=== PATIENT | male | born 1945 | race Caucasian/White ===

== ENCOUNTER 2017-09-12 17:33 | Observation (INO) | payer MEDICARE, OTHER, SELFPAY ==
[2017-09-12] VITALS (11 sets, daily range): BP systolic 142–183; BP diastolic 90–114; PULSE 70–85; RESP 16–18; TEMP 36.9–37.1; O2SAT 90–97; BMI 25.2; BMI 25.0; BMI 25.1
--- NOTE | 2017-09-12 17:37 | RAD_ITS ---
STUDY: X-RAY CHEST REASON FOR EXAM: Male, 72 years old. Chest pain TECHNIQUE: PA COMPARISON: None. FINDINGS: There is interstitial thickening seen most pronounced the lower lobes. There is a small nodular density in left upper lobe and a smaller one in the right lower lobe with possible cavitation.. There is no demonstrated pleural abnormality. Normal size heart. Normal mediastinum and ann. Normal visualized pulmonary arteries. Tortuous mild calcified aortic arch and descending thoracic aorta. Dorsal spine demonstrates spondylosis. Normal visualized ribs, clavicles, and shoulders. There is no demonstrated abnormality of the visualized soft tissue structures of the upper abdomen. RAD/Chest 1 View (Portable) IMPRESSION: Interstitial thickening most pronounced the lower lobes. Small nodular opacity in left upper lobe and right lower lobe with possible cavitation. CT recommended for further evaluation Electronically Signed: Leon Kelly MD at 18:39 EDT , Service support ,
--- NOTE | 2017-09-12 17:37 | EKG12_ITS ---
Test Reason : CP Blood Pressure : / mmHG Vent. Rate : 079 BPM Atrial Rate : 079 BPM P-R Int : 142 ms QRS Dur : 086 ms QT Int : 402 ms P-R-T Axes : 073 070 079 degrees QTc Int : 460 ms Normal sinus rhythm Normal ECG Confirmed by PATRICIA GARCIA, EDINSON ([id number]), non linear editor TORRI SALAMANCA ([id number]) on 09/15/2017 2:03:00 PM Referred By: LEAH Confirmed By:EDINSON GOMEZ MD
--- NOTE | 2017-09-12 18:25 | ED.VISSUMM ---
- ER Visit Summary Date of Service: 09/12/17 Chief Complaint: Pain History of Present Illness: The patient is a 72 M with chest pain. Retrosternal and radiates to his ears. Started yesterday. The last time he had this he ended up getting a stent around the year 1999. He has a history of coronary disease, hypertension, hyperlipidemia. He does smoke. He takes aspirin daily. He is also reporting some shortness of breath, nausea, and lower extremity swelling with this. No history of PE or aortic disease. Physical Examination: Afebrile and vital signs unremarkable except for a blood pressure of 183/114. He is sitting comfortably and appears in no acute distress. Skin normal in color without diaphoresis or pallor. Heart regular. Lungs clear. Abdomen soft. Patient has symmetric lower extremity edema. Neurovascular intact distally. Calf soft. Test Results: EKG shows sinus rhythm at a rate of 79. No acute ischemia or infarction pattern. Blood work and x-ray pending. Emergency Department Course and Treatment: Patient was placed on a monitor. He was treated with aspirin and nitroglycerin while awaiting results. Workup was all fairly unremarkable. X-ray showed a nodule and CT was advised. CTA was subsequently performed and showed bilateral extensive PEs. The patient did require oxygen as his pulse ox dropped to 89 on room air. He responded to nasal cannula. I notified the patient. He has no significant bleeding risks. Coags are pending. I spoke with the hospitalist. Patient will be admitted. We will start Eliquis. Treatment Plan: As above Disposition: Admission Impression: 1. Bilateral PEs 2. Chest pain, history of ACS This note was generated with [employer] dictation software. It may contain incorrect words, spelling, and punctuation that were not noted in review of the chart prior to signing ED Disposition - Plan for ED Patient: Chief Complaint: Chest Pain Referrals: [facility],[place] [STAFF PHYSICIAN] -
[2017-09-12 18:28] LABS: Anion Gap 9 (5-15); BUN 19 mg/dL (7-18); BUN/Creat Ratio 12.5 RATIO (10-20); Calcium,Total 9.4 mg/dL (8.5-10.1); Chloride 98 mmol/L (98-107); Creatinine, Serum 1.52 mg/dL (0.70-1.30); EST Glomerular Filtration Rate 48 mL/min (>60); Est Glom Filt Rate - Afr Amer 58 mL/min (>60); Estimated Creatinine Clearance 48.19 ml/min; Glucose 86 mg/dL (74-106); Potassium 4.1 mmol/L (3.5-5.1); Sodium Level 139 mmol/L (136-145)
[2017-09-12 18:33] LABS: Absolute Lymphocyte Count 2.25 X10^3/ul (0.83-4.51); Absolute Neutrophil Count 9.7 X10^3/uL (2.0-7.7); Basophil# 0.03 X10^3/uL; Basophil% 0.2 % (0-1); Eosinophil# 0.22 X10^3/uL; Eosinophils% 1.6 % (0-5); Hematocrit 49.7 % (40-54); Hemoglobin 16.8 g/dl (13.0-16.5); Lymphocyte # 2.25 X10^3/ul (4.0); Lymphocyte % 16.5 % (19-41); Mean Corp Hgb Conc 33.8 g/gl (32-36); Mean Corpuscular Hgb 32.2 pg (27.0-32.0); Mean Corpuscular Volume 95.4 fL (80-94); Mean Platelet Vol. 11.3 fl (6.2-12.0); Monocyte# 1.38 X10^3/uL; Monocyte% 10.1 % (0-10); Neutrophil # 9.68 X10^3/uL (2.7-7.7); Neutrophil % 71.2 % (47-70); Platelet Count 138 K/mm3 (150-450); RBC Distribution Width CV 13.9 % (11.6-14.6); RBC Distribution Width SD 47.8 fl (35.1-43.9); Red Blood Count 5.21 M/mm3 (4.6-6.2); White Blood Count 13.6 K/mm3 (4.4-11.0)
[2017-09-12 18:34] LABS: POSITIVE COUNT NO; POSITIVE DIFFERENTIAL NO; POSITIVE MORPHOLOGY NO
[2017-09-12] MEDS: Aspirin 81 MG TAB.CHEW 324 MG PO (18:48)
[2017-09-12] MEDS: Acetaminophen 325 MG Tablet 650 MG PO (19:08)
--- NOTE | 2017-09-12 19:11 | CT_ITS ---
STUDY: CTA CHEST REASON FOR EXAM: Male, 72 years old. Chest pain and shortness of breath RADIATION DOSAGE (If Supplied By Facility): CTDIvol = ( 12.96 ) mGy, DLP = ( 608.96 ) mGycm TECHNIQUE: The examination was performed with the intravenous administration of 100ML ml of Isovue 370 contrast material. Post-processing of the angiographic images was performed, with multiplanar reformation and 3D reconstruction. Individualized dose optimization techniques were used for this CT. COMPARISON: None. FINDINGS: Normal enhancement of the main pulmonary artery and right and left pulmonary arteries. There are nonocclusive filling defects within the left main pulmonary artery extending into the descending interlobar. branch, segmental and proximal subsegmental vessels. There is also clot seen within the descending interlobar branch of the right pulmonary artery extending into the segmental vessels. Intraluminal clot is also noted within the proximal branches of the bilateral upper lobe vessels and right middle lobe artery. There is atherosclerotic change of the aorta with mild aneurysmal dilatation of the ascending aorta proximal to the arch measuring approximately 4.1 x 3.9 cm.. There is no demonstrated aortic dissection. Heart appears mildly enlarged and there is coronary artery calcification. Small subcentimeter hilar and mediastinal nodes likely benign. Normal visualized trachea and bronchi. The lungs are well expanded. There is mild generalized interstitial thickening. Peripheral foci of wedge-shaped atelectasis are seen within both lower lobes, right middle lobe and left upper lobe likely representing changes of pulmonary infarction. Normal pleura. Normal chest wall structures. Dorsal spine demonstrates advanced arthritic change Tiny granulomatous calcifications are seen within the spleen Left kidney is atrophic CT/CTA Chest W/WO Contrast IMPRESSION: Extensive bilateral pulmonary emboli with peripheral foci of consolidation likely representing atelectasis due to pulmonary infarction.. N.B. : The above information has been verbally conveyed by Leon Kelly MD to Dr. Vivek Ortiz, Referring Physician, on 09/12/2017 20:19:45 (ET). Electronically Signed: Leon Kelly MD at 20:14 EDT , Service support , N.B. : The above information has been verbally conveyed by Leon Kelly MD to Dr. Vivek Ortiz, Referring Physician, on 09/12/2017 20:19:45 (ET).
[2017-09-12 20:47] LABS: International Normalized Ratio 1.2; Prothrombin Time (Protime)PT. 15.4 SECONDS (11.7-14.9)
[2017-09-12 20:48] LABS: Partial Thromboplast Time 38.1 Seconds (24.1-36.2)
--- NOTE | 2017-09-12 20:48 | ED.RN ---
[facility]ED [facility], SPOKE [facility] ([employer]ED DISTRIBUTION SYSTEM OPERATOR) TO ADVISE THE NEED FOR ADMISSION.
--- NOTE | 2017-09-12 20:51 | PCM.HP.STD ---
Problem List (1) Pulmonary emboli Status: Acute (2) CAD (coronary artery disease) Status: Chronic Qualifiers: Coronary Disease-Associated Artery/Lesion type: [place] artery [place] vs. transplanted heart: [place] heart Associated angina: without angina Qualified Code(s): I25.10 - Atherosclerotic heart disease of [place] coronary artery without angina pectoris (3) HTN (hypertension) Status: Chronic Qualifiers: Hypertension type: essential hypertension Qualified Code(s): I10 - Essential (primary) hypertension (4) Hyperlipidemia Status: Chronic Qualifiers: Hyperlipidemia type: unspecified Qualified Code(s): E78.5 - Hyperlipidemia, unspecified (5) Gout Status: Acute History of Present Illness Date of Admission: 09/12/17 Chief Complaint: chest pain. The patient is a 72 year old M is in his normal state of health up until yesterday where he was a doing some yard work and had some chest pain and shortness of breath. Symptoms did not improve and so presented to the emergency room. Emergency room patient had a CTA of his chest that showed bilateral scattered pulmonary emboli. Patient has never had a history of venous thromboembolic disease, however his sisters and mother, all of whom are , did have a history of this disorder. Denies any recent immobility nor any recent trauma to his lower extremities. [] Past Medical History Past Medical History (Chronic Problems): Chronic Problems CAD (coronary artery disease) (Chronic) HTN (hypertension) (Chronic) Hyperlipidemia (Chronic) Allergies adhesive tape Allergy (Verified 09/12/17 17:36) Other Penicillins Allergy (Verified 09/12/17 17:36) Other Home Medications: Ambulatory Orders Medication Instructions Recorded Allopurinol 100 mg PO DAILY 10/08/16 Aspirin [Aspirin EC] 325 mg PO DAILY 10/08/16 Atenolol [Tenormin (Beta Coretta)] 50 mg PO DAILY 10/08/16 Lisinopril [Prinivil] 10 mg PO DAILY 10/08/16 Omeprazole [Prilosec] 20 mg PO DAILY 10/08/16 Vitamin B Complex 1 each PO DAILY 10/08/16 Lives: Spouse/ Significant Other Smoking Status: Current every day smoker - *Family History Maternal History Items: - - Venous thromboembolic disease Sibling History Items: - - 2 sisters with venous thromboembolic disease Review of Systems Constitutional: Denies: Anorexia, Chills, Fever Eyes: Denies: Blurred vision, Double vision HEENT: Denies: Head Aches, Sinus Congestion, Sinus Drainage Cardiovascular: Reports: Chest Pain, Edema - Around his ankles Respiratory: Reports: Pleuritic Pain, Shortness of Breath. Denies: Cough Gastrointestinal: Denies: Abdominal Pain, Nausea, Vomiting Genitourinary: Denies: Dysuria Musculoskeletal: Denies: Joint Pain, Joint Tenderness Skin: Denies: Rash, Wounds Neurological: Denies: Numbness, Tingling, Focal weakness Psychiatric: Denies: Anxiety, Depression Hematologic/ Lymphatic: Reports: Easy Bruising - Due to aspirin. Denies: Easy Bleeding, Hx of blood clot VTE Information - Inpt Only VTE Present on Admission: Yes Patient Problems: Active and Suspected Problems Pulmonary emboli (Acute) Gout (Acute) - Physical Exam General: Alert, Cooperative, No apparent distress HEENT: Atraumatic, Normocephalic Neck: No Nodes, Thyroid Normal Size and Texture Lungs: Clear to auscultation, Normal air movement, No rhonchi, No wheeze Cardiovascular: Regular rate, Regular Rhythm, Normal S1, Normal S2, No murmurs Abdomen: Bowel Sounds Present, Soft, Non Tender, Non-Distended, No Hepato-splenomegaly, Passing Flatus Extremities: No edema, No Calf Tenderness, Edema - Trace around his ankles. Skin: No rashes, No breakdown Musculoskeletal: No Tenderness to Palpation of Joints or Extremities, No Muscle Wasting Neurological: Neuro grossly intact, Muscle tone normal Psych/Mental Status: Normal Affect, Appropriate Vital Signs Temp Pulse Resp BP Pulse Ox 36.9 C 71 18 150/93 H 92 09/12/17 17:34 09/12/17 20:47 09/12/17 20:47 09/12/17 20:47 09/12/17 20:47 Oxygen Delivery Method Room Air Weight: 86.8 kg Body Mass Index (BMI) 25.2 Laboratory Tests Past 24 Hrs 09/12/17 09/12/17 09/12/17 17:55 17:55 17:55 WBC 13.6 H RBC 5.21 Hgb 16.8 H Hct 49.7 MCV 95.4 H MCH 32.2 H MCHC 33.8 RDW 13.9 RDW Differential 47.8 H Plt Count 138 L MPV 11.3 Immature Gran % (Auto) 0.400 Neut % (Auto) 71.2 H Lymph % (Auto) 16.5 L Long % (Auto) 10.1 H Eos % (Auto) 1.6 Baso % (Auto) 0.2 Absolute Neuts (auto) 9.7 H Absolute Lymphs (auto) 2.25 Total Counted Not Reportable PT INR APTT Sodium 139 Potassium 4.1 Chloride 98 Carbon Dioxide 32.0 Anion Gap 9 BUN 19 H Creatinine 1.52 H Estim Creat Clear Calc 48.19 Est GFR (MDRD) Af Amer 58 L Est GFR (MDRD) Non-Af 48 L BUN/Creatinine Ratio 12.5 Glucose 86 Calcium 9.4 Troponin I < 0.015 B-Natriuretic Peptide 380.0 H 09/12/17 17:55 WBC RBC Hgb Hct MCV MCH MCHC RDW RDW Differential Plt Count MPV Immature Gran % (Auto) Neut % (Auto) Lymph % (Auto) Long % (Auto) Eos % (Auto) Baso % (Auto) Absolute Neuts (auto) Absolute Lymphs (auto) Total Counted PT 15.4 H INR 1.2 APTT 38.1 H Sodium Potassium Chloride Carbon Dioxide Anion Gap BUN Creatinine Estim Creat Clear Calc Est GFR (MDRD) Af Amer Est GFR (MDRD) Non-Af BUN/Creatinine Ratio Glucose Calcium Troponin I B-Natriuretic Peptide Clinical Impression(s) from Imaging Studies Chest X-Ray 09/12/17 17:37 IMPRESSION: Interstitial thickening most pronounced the lower lobes. Small nodular opacity in left upper lobe and right lower lobe with possible cavitation. CT recommended for further evaluation Electronically Signed: Leon Kelly MD at 18:39 EDT , Service support , Chest CTA 09/12/17 19:11 IMPRESSION: Extensive bilateral pulmonary emboli with peripheral foci of consolidation likely representing atelectasis due to pulmonary infarction.. N.B. : The above information has been verbally conveyed by Leon Kelly MD to Dr. Vivek Ortiz, Referring Physician, on 09/12/2017 20:19:45 (ET). Electronically Signed: Leon Kelly MD at 20:14 EDT , Service support , N.B. : The above information has been verbally conveyed by Leon Kelly MD to Dr. Vivek Ortiz, Referring Physician, on 09/12/2017 20:19:45 (ET). Assessment/Plan Active and Suspected Problems Pulmonary emboli (Acute) Gout (Acute) 1. Bilateral pulmonary emboli Unprovoked Discussed with the patient's the novel anticoagulants and Coumadin. Recommended the novel anticoagulants and recommended Xarelto.. Patient is in agreement and that will be started. Given his family history and this being an unprovoked clot feel the patient likely will require lifelong anticoagulation. Would recommend patient follow-up with hematology as outpatient but has not any changes acute management at this time. Patient will need to be on anticoagulation for the next 6 months. Patient's oxygen was marginal after taking short walks to the bathroom. Will check an ambulatory pulse ox to see if patient will require oxygen. The patient remains stable then I feel the patient could be discharged on the pending his oxygen evaluation. [facility] Code Visit Inpatient E&M: 81102 Init Hosp L3
--- NOTE | 2017-09-12 20:57 | ED.RN ---
[facility] CALL[facility] BACK[facility] PER AGUSTIN [facility] UNABLE TO ADMIT.
--- NOTE | 2017-09-12 20:58 | HP.PCM_ITS ---
Problem List (1) Pulmonary emboli Status: Acute (2) CAD (coronary artery disease) Status: Chronic Qualifiers: Coronary Disease-Associated Artery/Lesion type: [place] artery [place] vs. transplanted heart: [place] heart Associated angina: without angina Qualified Code(s): I25.10 - Atherosclerotic heart disease of [place] coronary artery without angina pectoris (3) HTN (hypertension) Status: Chronic Qualifiers: Hypertension type: essential hypertension Qualified Code(s): I10 - Essential (primary) hypertension (4) Hyperlipidemia Status: Chronic Qualifiers: Hyperlipidemia type: unspecified Qualified Code(s): E78.5 - Hyperlipidemia , unspecified (5) Gout Status: Acute History of Present Illness Date of Admission: 09/12/17 Chief Complaint: chest pain. The patient is a 72 year old M is in his normal state of health up until yesterday where he was a doing some yard work and had some chest pain and shortness of breath. Symptoms did not improve and so presented to the emergency room. Emergency room patient had a CTA of his chest that showed bilateral scattered pulmonary emboli. Patient has never had a history of venous thromboembolic disease, however his sisters and mother, all of whom are , did have a history of this disorder. Denies any recent immobility nor any recent trauma to his lower extremities. [] Past Medical History Past Medical History (Chronic Problems): Chronic Problems CAD (coronary artery disease) (Chronic) HTN (hypertension) (Chronic) Hyperlipidemia (Chronic) Allergies adhesive tape Allergy (Verified 09/12/17 17:36) Other Penicillins Allergy (Verified 09/12/17 17:36) Other Home Medications: Ambulatory Orders Medication Instructions Recorded Allopurinol 100 mg PO DAILY 10/08/16 Aspirin [Aspirin EC] 325 mg PO DAILY 10/08/16 Atenolol [Tenormin (Beta Coretta)] 50 mg PO DAILY 10/08/16 Lisinopril [Prinivil] 10 mg PO DAILY 10/08/16 Omeprazole [Prilosec] 20 mg PO DAILY 10/08/16 Vitamin B Complex 1 each PO DAILY 10/08/16 Lives: Spouse/ Significant Other Smoking Status: Current every day smoker - *Family History Maternal History Items: - - Venous thromboembolic disease Sibling History Items: - - 2 sisters with venous thromboembolic disease Review of Systems Constitutional: Denies: Anorexia, Chills, Fever Eyes: Denies: Blurred vision, Double vision HEENT: Denies: Head Aches, Sinus Congestion, Sinus Drainage Cardiovascular: Reports: Chest Pain, Edema - Around his ankles Respiratory: Reports: Pleuritic Pain, Shortness of Breath. Denies: Cough Gastrointestinal: Denies: Abdominal Pain, Nausea, Vomiting Genitourinary: Denies: Dysuria Musculoskeletal: Denies: Joint Pain, Joint Tenderness Skin: Denies: Rash, Wounds Neurological: Denies: Numbness, Tingling, Focal weakness Psychiatric: Denies: Anxiety, Depression Hematologic/ Lymphatic: Reports: Easy Bruising - Due to aspirin. Denies: Easy Bleeding, Hx of blood clot VTE Information - Inpt Only VTE Present on Admission: Yes Patient Problems: Active and Suspected Problems Pulmonary emboli (Acute) Gout (Acute) - Physical Exam General: Alert, Cooperative, No apparent distress HEENT: Atraumatic, Normocephalic Neck: No Nodes, Thyroid Normal Size and Texture Lungs: Clear to auscultation, Normal air movement, No rhonchi, No wheeze Cardiovascular: Regular rate, Regular Rhythm, Normal S1, Normal S2, No murmurs Abdomen: Bowel Sounds Present, Soft, Non Tender, Non-Distended, No Hepato- splenomegaly, Passing Flatus Extremities: No edema, No Calf Tenderness, Edema - Trace around his ankles. Skin: No rashes, No breakdown Musculoskeletal: No Tenderness to Palpation of Joints or Extremities, No Muscle Wasting Neurological: Neuro grossly intact, Muscle tone normal Psych/Mental Status: Normal Affect, Appropriate Vital Signs Temp Pulse Resp BP Pulse Ox 36.9 C 71 18 150/93 H 92 09/12/17 17:34 09/12/17 20:47 09/12/17 20:47 09/12/17 20:47 09/12/17 20:47 Oxygen Delivery Method Room Air Weight: 86.8 kg Body Mass Index (BMI) 25.2 Laboratory Tests Past 24 Hrs 09/12/17 09/12/17 09/12/17 17:55 17:55 17:55 WBC 13.6 H RBC 5.21 Hgb 16.8 H Hct 49.7 MCV 95.4 H MCH 32.2 H MCHC 33.8 RDW 13.9 RDW Differential 47.8 H Plt Count 138 L MPV 11.3 Immature Gran % (Auto) 0.400 Neut % (Auto) 71.2 H Lymph % (Auto) 16.5 L [place] % (Auto) 10.1 H Eos % (Auto) 1.6 Baso % (Auto) 0.2 Absolute Neuts (auto) 9.7 H Absolute Lymphs (auto) 2.25 Total Counted Not Reportable PT INR APTT Sodium 139 Potassium 4.1 Chloride 98 Carbon Dioxide 32.0 Anion Gap 9 BUN 19 H Creatinine 1.52 H Estim Creat Clear Calc 48.19 Est GFR (MDRD) Af Amer 58 L Est GFR (MDRD) Non-Af 48 L BUN/Creatinine Ratio 12.5 Glucose 86 Calcium 9.4 Troponin I < 0.015 B-Natriuretic Peptide 380.0 H 09/12/17 17:55 WBC RBC Hgb Hct MCV MCH MCHC RDW RDW Differential Plt Count MPV Immature Gran % (Auto) Neut % (Auto) Lymph % (Auto) [place] % (Auto) Eos % (Auto) Baso % (Auto) Absolute Neuts (auto) Absolute Lymphs (auto) Total Counted PT 15.4 H INR 1.2 APTT 38.1 H Sodium Potassium Chloride Carbon Dioxide Anion Gap BUN Creatinine Estim Creat Clear Calc Est GFR (MDRD) Af Amer Est GFR (MDRD) Non-Af BUN/Creatinine Ratio Glucose Calcium Troponin I B-Natriuretic Peptide Clinical Impression(s) from Imaging Studies Chest X-Ray 09/12/17 17:37 IMPRESSION: Interstitial thickening most pronounced the lower lobes. Small nodular opacity in left upper lobe and right lower lobe with possible cavitation. CT recommended for further evaluation Electronically Signed: Leon Kelly MD at 18:39 EDT , Service support , Chest CTA 09/12/17 19:11 IMPRESSION: Extensive bilateral pulmonary emboli with peripheral foci of consolidation likely representing atelectasis due to pulmonary infarction.. N.B. : The above information has been verbally conveyed by Leon Kelly MD to Dr. Vivek Ortiz, Referring Physician, on 09/12/2017 20:19:45 (ET). Electronically Signed: Leon Kelly MD at 20:14 EDT , Service support , N.B. : The above information has been verbally conveyed by Leon Kelly MD to Dr. Vivek Ortiz, Referring Physician, on 09/12/2017 20:19:45 (ET). Assessment/Plan Active and Suspected Problems Pulmonary emboli (Acute) Gout (Acute) 1. Bilateral pulmonary emboli * Unprovoked * Discussed with the patient's the novel anticoagulants and Coumadin. Recommended the novel anticoagulants and recommended Xarelto.. Patient is in agreement and that will be started. * Given his family history and this being an unprovoked clot feel the patient likely will require lifelong anticoagulation. Would recommend patient follow- up with hematology as outpatient but has not any changes acute management at this time. Patient will need to be on anticoagulation for the next 6 months. * Patient's oxygen was marginal after taking short walks to the bathroom. Will check an ambulatory pulse ox to see if patient will require oxygen. * The patient remains stable then I feel the patient could be discharged on the pending his oxygen evaluation. [facility] Code Visit Inpatient E&M: 91835 Init Hosp L3
[2017-09-12] MEDS: Rivaroxaban 15 MG Tablet PO (22:38)
[2017-09-13] VITALS (13 sets, daily range): BP systolic 129–165; BP diastolic 61–90; PULSE 65–86; RESP 16–20; TEMP 36.7–36.9; O2SAT 85–94
[2017-09-13] MEDS: Lisinopril 5 MG Tablet PO ×2 (00:15→08:42)
[2017-09-13 06:01] LABS: Anion Gap 5 (5-15); BUN 21 mg/dL (7-18); BUN/Creat Ratio 13.5 RATIO (10-20); Calcium,Total 9.2 mg/dL (8.5-10.1); Chloride 100 mmol/L (98-107); Creatinine, Serum 1.55 mg/dL (0.70-1.30); EST Glomerular Filtration Rate 47 mL/min (>60); Est Glom Filt Rate - Afr Amer 57 mL/min (>60); Estimated Creatinine Clearance 47.25 ml/min; Glucose 109 mg/dL (74-106); Potassium 4.7 mmol/L (3.5-5.1); Sodium Level 141 mmol/L (136-145)
[2017-09-13] MEDS: Rivaroxaban 15 MG Tablet PO (06:43)
[2017-09-13] MEDS: Vitamin B Comp W-C Capsule 1 CAP PO (08:42)
[2017-09-13] MEDS: Allopurinol 100 MG Tablet PO (08:42)
[2017-09-13] MEDS: Pantoprazole Sodium 20 MG Tablet PO (08:42)
[2017-09-13] MEDS: Aspirin E.C. 325 MG Tablet PO (08:42)
[2017-09-13] MEDS: Atenolol 50 MG Tablet PO (08:42)
[2017-09-13] MEDS: HYDROCHLOROTHIAZIDE 12.5 MG CAPSULE PO (08:42)
--- NOTE | 2017-09-13 09:25 | PCM.DC ---
- Discharge Diagnoses Current Active Problems: Current Active and Chronic Problems Pulmonary emboli (Acute) CAD (coronary artery disease) (Chronic) HTN (hypertension) (Chronic) Hyperlipidemia (Chronic) Gout (Acute) You will use the following diet at home:: No restrictions Your food should be the consistency of: Regular Your liquids should be the consistency of: Regular/Thin Discharge Activity: Return to Normal Activity Weight Bearing Status: Full weight bearing Allergies/Adverse Reactions: Allergies adhesive tape Allergy (Verified 09/12/17 17:36) Other Penicillins Allergy (Verified 09/12/17 17:36) Other Medications to take at Discharge Allopurinol 100 mg PO DAILY 10/08/16 Aspirin [Aspirin EC] 325 mg PO DAILY 10/08/16 Atenolol [Tenormin (beta nirmal)] 50 mg PO DAILY 10/08/16 Lisinopril [Prinivil] 5 mg PO BID 10/08/16 Omeprazole [Prilosec] 20 mg PO DAILY 10/08/16 Vitamin B Complex 1 each PO DAILY 10/08/16 Aspirin 325 mg PO DAILY@0800 09/12/17 Diphenhydramine HCl [Allergy Relief] 25 mg PO DAILY 09/12/17 Hydrochlorothiazide [Hctz] 12.5 mg PO DAILY 09/12/17 Multivitamin [Daily Multiple Vitamin] 1 tab PO DAILY 09/12/17 Vitamin E 400 unit PO DAILY 09/12/17 Rivaroxaban [Xarelto] 15 mg PO BID #42 tab 09/13/17 The following prescriptions were given: Rivaroxaban [Xarelto] 15 mg PO BID #42 tab Primary Care Physician: [facility],[place] [STAFF PHYSICIAN] - Please follow up with your Primary Care Physician in: in 1-2 weeks
--- NOTE | 2017-09-13 10:05 | CASEMGMT ---
Per Dr. Arango, pt to be sent home on Xarelto and also may qualify for home oxygen. Xarelto script was e[facility]scribed to [facility]. Per [facility]. According to [place] card, pt does have prescription insurance through the [place]. Call to [facility] and per tech, pt is going to need prior auth for the Xarelto script. Pt updated on all at this time, voices understanding and states that the prescription coverage listed on the [place] card was a mistake. Call to [place] to check coverage and complete prior auth, if able. Per Curtis at [place], Xarelto is not a covered med and then he does state that he has never seen this but pt does not have prescription coverage through his [place]. Dr. Arango is updated at this time, voices understanding. Call placed to [facility] clinic and message left with Dr. Razo's RNMayela to call this RN CM back in regards to getting script filled at [facility] today so that pt will have med to take this evening. Per Pippa RN, pt initially qualified for home oxygen and message was left at [place] [facility] to call this RN CM back. Dr. Arango had Pippa RN retest pt and pt stayed at 89% RA with ambulation the second time. Pt is a smoker. Per Dr. Arango, pt will not need home oxygen at this time. Call back to [place] [facility] dept and informed at this time, voices understanding. This RN CM still awaiting call back from [facility] regarding Xarelto at this time. Eliezer RN CM
--- NOTE | 2017-09-13 11:20 | CASEMGMT ---
Call placed to Milan KOO at [facility] to see if she can assist this RN CM with getting pt connected to Mayela, Dr. Razo's RN, at this time. Per Milan, she messaged Mayela to call this RN CM and she asks that this RN CM fax script and clinicals to [facility] release of info line at this time with attention to Dr. Razo and Mayela RN. Fax sent to [phone] per her request at this time. [facility] Eliezer COLVIN CM
--- NOTE | 2017-09-13 12:07 | CASEMGMT ---
Addendum entered by Lily Alejandro 09/13/17 13:36: Pt updated on progress at this time, voices understanding. Pt is eating lunch at this time. Eliezer COLVIN CM Original Note: This VINICIUS VILCHIS received call from Mayela COLVIN and she was updated on situation at this time and voiced understanding. Mayela states she will review faxed clinicals and script. Advised her that pt is up for discharge and will need a dose tonight, voices understanding. Per Mayela, their clinic closes at 1630 today. Eliezer COLVIN CM
--- NOTE | 2017-09-13 14:21 | CASEMGMT ---
Addendum entered by Lily Alejandro 09/13/17 16:06: Per Dr. Arango, pt should be able to use the Xarelto 30 day free card and he will be discharging pt at this time. This RN CM received call back from Nai at [facility] and she states that she spoke with Anti-coagulation clinic and they state they will work on erlin in the am for pt and will let him know. This RN CM updated pt on all at this time and advised him that this RN CM would place a f/u call to him tomorrow to make sure able to use card and f/u, voices understanding. Eliezer COLVIN CM Original Note: This RN CM received call back from Nai at [facility] and she states that Xarelto script has to be sent to Anti-coagulation clinic to get authorized prior to dispensing to pt, she states that this will be sent as a high priority, but 'may take a day or two to get approved.' Pt set up for appointment with RN at the [facility] for 0. Per [facility] pharmacist, pt can be dosed 2nd dose here prior to discharge and can be sent home with 3 pills to get him to monday and anti-coagulation approval/[facility] appointment. Dr. Arango aware of all at this time. Eliezer COLVIN CM
--- NOTE | 2017-09-14 17:05 | PCM.DC.SUM ---
Discharge Date and Diagnosis Date of Admission: 09/12/17 Date of Discharge: 09/13/17 - Primary Discharge Diagnosis #1 Acute bilateral pulmonary emboli #2 coronary artery disease #3 hypertension #4 hyperlipidemia #5 hypoxia secondary to #1 #6 chronic kidney disease stage III-etiology unclear - Secondary Discharge Diagnosis Chronic Problems CAD (coronary artery disease) (Chronic) HTN (hypertension) (Chronic) Hyperlipidemia (Chronic) Hospital Course and Treatment Operations: None Procedures: None Summary of Care Provided: The patient is a 72 year old M was seen in the emergency room at [facility] with chief complaint of chest pain. Workup in the emergency room included a chest x-ray which showed a possible pulmonary nodule, CTA was subsequently performed and showed bilateral extensive PEs. Patient was mildly hypoxic with an 89% pulse ox on room air. Laboratory work showed an elevated white blood cell count at 13.6, creatinine was elevated at 1.52. Patient was placed in observation status on PCU, he was placed on Xarelto, and his oxygen saturation was monitored. On 09/13/17, patient was seen and examined at that time he was not hypoxic on room air and he was felt to be stable to be discharged on Xarelto for follow-up at the [facility] in 2 days. Discharge Activity: Return to Normal Activity Weight Bearing Status: Full weight bearing Home Medications: Medications to take at Discharge Allopurinol 100 mg PO DAILY 10/08/16 Aspirin [Aspirin EC] 325 mg PO DAILY 10/08/16 Atenolol [Tenormin (beta nirmal)] 50 mg PO DAILY 10/08/16 Lisinopril [Prinivil] 5 mg PO BID 10/08/16 Omeprazole [Prilosec] 20 mg PO DAILY 10/08/16 Vitamin B Complex 1 each PO DAILY 10/08/16 Aspirin 325 mg PO DAILY@0800 09/12/17 Diphenhydramine HCl [Allergy Relief] 25 mg PO DAILY 09/12/17 Hydrochlorothiazide [Hctz] 12.5 mg PO DAILY 09/12/17 Multivitamin [Daily Multiple Vitamin] 1 tab PO DAILY 09/12/17 Vitamin E 400 unit PO DAILY 09/12/17 Rivaroxaban [Xarelto] 15 mg PO BID #42 tab 09/13/17 Following Prescrptions Were Given to Patient: Rivaroxaban [Xarelto] 15 mg PO BID #42 tab [facility] Physician: [facility] [STAFF PHYSICIAN] - Please follow up with your Primary Care Physician in: in 1-2 weeks Please Follow Up With: [facility] Disposition: Home Minutes spent on discharge:: 30 Patient Condition:: Stable Medical Necessity - Tobacco Use Smoking Status: Current every day smoker Meaningful Use Info Meaningful Use Diagnoses (Choose all that apply): VTE - VTE Anticoag overlap given w/in hospital stay or rx'd at dc?: No Pt receive overlap for 5 days?: No Reason overlap not ordered, prescribed, or given for 5 days: Treatment Not Indicated - treated with Xarelto Code Visit OBSV E&M: 42009 Observation care discharge
--- NOTE | 2017-09-14 17:11 | DS.PCM_ITS ---
Discharge Date and Diagnosis Date of Admission: 09/12/17 Date of Discharge: 09/13/17 - Primary Discharge Diagnosis #1 Acute bilateral pulmonary emboli #2 coronary artery disease #3 hypertension #4 hyperlipidemia #5 hypoxia secondary to #1 #6 chronic kidney disease stage III-etiology unclear - Secondary Discharge Diagnosis Chronic Problems CAD (coronary artery disease) (Chronic) HTN (hypertension) (Chronic) Hyperlipidemia (Chronic) Hospital Course and Treatment Operations: None Procedures: None Summary of Care Provided: The patient is a 72 year old M was seen in the emergency room at [facility] with chief complaint of chest pain. Workup in the emergency room included a chest x-ray which showed a possible pulmonary nodule, CTA was subsequently performed and showed bilateral extensive PEs. Patient was mildly hypoxic with an 89% pulse ox on room air. Laboratory work showed an elevated white blood cell count at 13.6, creatinine was elevated at 1.52. Patient was placed in observation status on PCU, he was placed on Xarelto, and his oxygen saturation was monitored. On 09/13/17, patient was seen and examined at that time he was not hypoxic on room air and he was felt to be stable to be discharged on Xarelto for follow-up at the [facility] in 2 days. Discharge Activity: Return to Normal Activity Weight Bearing Status: Full weight bearing Home Medications: Medications to take at Discharge Allopurinol 100 mg PO DAILY 10/08/16 Aspirin [Aspirin EC] 325 mg PO DAILY 10/08/16 Atenolol [Tenormin (beta nirmal)] 50 mg PO DAILY 10/08/16 Lisinopril [Prinivil] 5 mg PO BID 10/08/16 Omeprazole [Prilosec] 20 mg PO DAILY 10/08/16 Vitamin B Complex 1 each PO DAILY 10/08/16 Aspirin 325 mg PO DAILY@0800 09/12/17 Diphenhydramine HCl [Allergy Relief] 25 mg PO DAILY 09/12/17 Hydrochlorothiazide [Hctz] 12.5 mg PO DAILY 09/12/17 Multivitamin [Daily Multiple Vitamin] 1 tab PO DAILY 09/12/17 Vitamin E 400 unit PO DAILY 09/12/17 Rivaroxaban [Xarelto] 15 mg PO BID #42 tab 09/13/17 Following Prescrptions Were Given to Patient: Rivaroxaban [Xarelto] 15 mg PO BID #42 tab [facility] Care Physician: [facility] [[place]FF PHYSICIAN] - Please follow up with your Primary Care Physician in: in 1-2 weeks Please Follow Up With: [place] [facility] Disposition: Home Minutes spent on discharge:: 30 Patient Condition:: Stable Medical Necessity - Tobacco Use Smoking Status: Current every day smoker Meaningful Use Info Meaningful Use Diagnoses (Choose all that apply): VTE - VTE Anticoag overlap given w/in hospital stay or rx'd at dc?: No Pt receive overlap for 5 days?: No Reason overlap not ordered, prescribed, or given for 5 days: Treatment Not Indicated - treated with Xarelto Code Visit OBSV E&M: 11568 Observation care discharge
== END 2017-09-13 09:27 | disposition home or self-care (01) ==
LOC: ED 18:40 → PCU 20:53
PROVIDERS: Emergency Provider Emergency Medicine; Family Provider Family Medicine; PCP Family Medicine; Visit Provider Internal Medicine
DX: I26.99 Other pulmonary embolism without acute cor pulmonale (principal); I25.10 Atherosclerotic heart disease of native coronary artery without angina pectoris; E78.5 Hyperlipidemia, unspecified; I12.9 Hypertensive chronic kidney disease with stage 1 through stage 4 chronic kidney disease, or unspecified chronic kidney disease; N18.3 Chronic kidney disease, stage 3 (moderate); R09.02 Hypoxemia; Z79.899 Other long term (current) drug therapy; Z79.82 Long term (current) use of aspirin; M10.9 Gout, unspecified; F17.210 Nicotine dependence, cigarettes, uncomplicated; R06.02 Shortness of breath
CPT/HCPCS: 36415; 71045; 71275; 80048; 83880; 84484; 85025; 85610; 85730; 93005; 99218; 99283; 99406; Q9967; A4216; G0378

== ENCOUNTER → 2017-10-13 13:45 | Outpatient (CLI) | payer MEDICARE, OTHER, SELFPAY ==
--- NOTE | 2017-10-13 13:49 | CT_ITS ---
STUDY: CT BRAIN WITHOUT CONTRAST REASON FOR EXAM: Male, 72 years old. Anticoagulated patient with right leg numbness. RADIATION DOSAGE (If Supplied By Facility): CTDIvol = ( 44.99 ) mGy, DLP = ( 829.85 ) mGycm TECHNIQUE: Transaxial CT imaging of the brain was performed without administration of intravenous contrast material. Individualized dose optimization techniques were used for this CT. COMPARISON: Oct 08 2016 2:36pm FINDINGS: Normal soft tissue structures. Normal calvarium. No definite hyperdense blood seen in either lobe. There is mild cerebral atrophy with widening of the extra-axial spaces and ventricular dilatation. There are areas of decreased attenuation within the white matter tracts of the supratentorial brain, consistent with microvascular disease changes. Normal basal ganglia and thalami. Normal brainstem. There is mild cerebellar atrophy. There is no intracranial hemorrhage. There are no findings of an acute ischemic infarction. Normal visualized paranasal sinuses. CT/Brain/Head without Contrast IMPRESSION: No acute abnormality. No significant change. Mild atrophy and White matter disease. Electronically Signed: Js Haney MD at 15:33 EDT , Service support ,
== END ==
PROVIDERS: Family Provider Family Medicine; PCP Family Medicine; Visit Provider Family Medicine
DX: I25.10 Atherosclerotic heart disease of native coronary artery without angina pectoris (principal); I26.99 Other pulmonary embolism without acute cor pulmonale
CPT/HCPCS: 70450

== ENCOUNTER → 2017-10-17 12:30 | Outpatient (CLI) | payer MEDICARE, OTHER, SELFPAY ==
--- NOTE | 2017-10-17 12:33 | VDLE_ITS ---
Reason For Study: leg numbness with PE RIGHT LEFT CFV is compressible, spontaneous, phasic, CFV is compressible, spontaneous, phasic, competent and demonstrates normal competent, and demonstrates normal augmentation. augmentation. FV is compressible, spontaneous, phasic, competent and demonstrates normal augmentation. POP V is compressible, spontaneous, phasic, competent and demonstrates normal augmentation. T/P Trunk is compressible. PTV is compressible. Peroneal V, Gastroc V, and Soleus V are dilated and noncompressible. GSV below the knee is dilated and noncompressible. Remainder of GSV is compressible. Procedure Exam performed in department. The exam was diagnostic. A preliminary report was called and/or faxed to Dr. Stanley's office. Office to call pt with instructions. Interpretation Summary Acute deep vein thrombosis is noted in the right peroneal vein. Acute deep vein thrombosis is noted in the right gastrocnemius vein. Acute deep vein thrombosis is noted in the right soleus vein. The remainder of the right lower extremity deep venous system is patent and compressible. Valvular competence appears intact within the proximal deep venous system on the right . Acute superficial thrombophlebitis is noted in the right great saphenous vein below the knee. The right great saphenous vein is patent and compressible above the knee. Ordering Physician: Sharmila Stanley Performed By: Ezio Robert RVT
== END ==
PROVIDERS: Family Provider Family Medicine; PCP Family Medicine; Visit Provider Family Medicine
DX: I26.99 Other pulmonary embolism without acute cor pulmonale (principal); F17.200 Nicotine dependence, unspecified, uncomplicated
CPT/HCPCS: 93971

== ENCOUNTER → 2017-10-20 14:33 | Outpatient (CLI) | payer MEDICARE, OTHER, SELFPAY ==
[2017-10-20 15:39] LABS: Absolute Lymphocyte Count 1.86 X10^3/ul (0.83-4.51); Absolute Neutrophil Count 7.9 X10^3/uL (2.0-7.7); Basophil# 0.03 X10^3/uL; Basophil% 0.3 % (0-1); Eosinophil# 0.27 X10^3/uL; Eosinophils% 2.4 % (0-5); Hematocrit 43.4 % (40-54); Hemoglobin 14.2 g/dl (13.0-16.5); Lymphocyte # 1.86 X10^3/ul (4.0); Lymphocyte % 16.5 % (19-41); Mean Corp Hgb Conc 32.7 g/gl (32-36); Mean Corpuscular Hgb 31.8 pg (27.0-32.0); Mean Corpuscular Volume 97.3 fL (80-94); Mean Platelet Vol. 11.7 fl (6.2-12.0); Monocyte# 1.14 X10^3/uL; Monocyte% 10.1 % (0-10); Neutrophil # 7.91 X10^3/uL (2.7-7.7); Neutrophil % 70.3 % (47-70); Platelet Count 135 K/mm3 (150-450); RBC Distribution Width CV 15.6 % (11.6-14.6); RBC Distribution Width SD 53.8 fl (35.1-43.9); Red Blood Count 4.46 M/mm3 (4.6-6.2); White Blood Count 11.3 K/mm3 (4.4-11.0)
[2017-10-20 15:41] LABS: POSITIVE COUNT NO; POSITIVE DIFFERENTIAL NO; POSITIVE MORPHOLOGY NO
[2017-10-20 15:56] LABS: ALB/GLOB Ratio 0.9 RATIO (0.9-2.4); AST(SGOT) 26 U/L (15-37); Alanine Aminotransfer ALT/SGPT 26 U/L (16-61); Albumin, Serum 3.5 g/dL (3.2-5.0); Alkaline Phosphatase 52 U/L (45-117); Anion Gap 6 (5-15); BUN 27 mg/dL (7-18); BUN/Creat Ratio 16.5 RATIO (10-20); Calcium,Total 9.3 mg/dL (8.5-10.1); Chloride 102 mmol/L (98-107); Creatinine, Serum 1.64 mg/dL (0.70-1.30); EST Glomerular Filtration Rate 44 mL/min (>60); Est Glom Filt Rate - Afr Amer 53 mL/min (>60); Globulin 3.8 g/dL (2.2-4.2); Glucose 87 mg/dL (74-106); Potassium 3.9 mmol/L (3.5-5.1); Protein, Total 7.3 g/dL (6.4-8.2); Sodium Level 139 mmol/L (136-145)
== END ==
PROVIDERS: Visit Provider Family Medicine
DX: I25.10 Atherosclerotic heart disease of native coronary artery without angina pectoris (principal); N18.3 Chronic kidney disease, stage 3 (moderate)
CPT/HCPCS: 36415; 80053; 85025

== ENCOUNTER → 2017-10-26 15:26 | Outpatient (CLI) | payer MEDICARE, OTHER, SELFPAY ==
--- NOTE | 2017-10-26 15:30 | CT_ITS ---
STUDY: CTA CHEST REASON FOR EXAM: Male, 72 years old. Dyspnea. History of PE. RADIATION DOSAGE (If Supplied By Facility): CTDIvol = ( 16.05 ) mGy, DLP = ( 554.22 ) mGycm TECHNIQUE: The examination was performed with the intravenous administration of 100 ml of Isovue 370 contrast material. Post-processing of the angiographic images was performed, with multiplanar reformation and 3D reconstruction. Individualized dose optimization techniques were used for this CT. COMPARISON: 09/12/2017, which showed extensive bilateral pulmonary emboli.. FINDINGS: Markedly improved pulmonary emboli since previous exam. Currently, no evidence for central or major pulmonary emboli. Small filling defects seen in the segmental artery to the right upper lobe anterior segment, and a subsegmental artery to the right apical segment, and possibly a few tiny filling defects to both lower lobes. These are most consistent with residual emboli from the previous episode although acute emboli cannot be excluded in the face of prior PE. There is atherosclerotic calcification of the aortic arch with tortuosity. There is no demonstrated aortic dissection. Normal heart and pericardium. Moderately extensive mediastinal and bilateral hilar adenopathy is worse than prior study and could be neoplastic. There is hyperexpansion of the lungs and evidence for COPD. Stable hemispheric 2.7 cm mass density in the periphery of the right lower lobe. Stable lobulated 2.5 cm mass density in the lateral mid left lung. Soft tissue density throughout the left hilum and extending into the adjacent left upper lobe which could be infiltrate and/or neoplasm. No effusions. Normal chest wall structures. There are degenerative changes of thoracic spine. Normal visualized upper abdomen. CT/Chest W/WO Contrast IMPRESSION: A few tiny filling defects in the pulmonary arteries are seen as above, probably residual from the previous pulmonary emboli May. Marked worsening of adenopathy including both ann worse on the left suspicious for malignancy. Bilateral pulmonary masses as specified above. Infiltrating neoplasm, postobstructive pneumonitis or pneumonia in the left upper lobe. . Electronically Signed: Js Haney MD at 9:16 EDT , Service support ,
== END ==
PROVIDERS: Family Provider Family Medicine; PCP Family Medicine; Visit Provider Family Medicine
DX: I26.99 Other pulmonary embolism without acute cor pulmonale (principal); R04.2 Hemoptysis; R53.83 Other fatigue; R06.02 Shortness of breath; Z79.01 Long term (current) use of anticoagulants; R53.1 Weakness; I82.409 Acute embolism and thrombosis of unspecified deep veins of unspecified lower extremity
CPT/HCPCS: 71270; 71275; Q9967

== ENCOUNTER 2017-11-05 17:26 | Emergency (ER) | payer MEDICARE, OTHER, SELFPAY ==
[2017-11-05] VITALS (8 sets, daily range): BP systolic 114–127; BP diastolic 60–71; PULSE 66–82; RESP 16–26; TEMP 36.6; O2SAT 90–96; BMI 20.3
--- NOTE | 2017-11-05 18:05 | EKG12_ITS ---
Test Reason : SOB Blood Pressure : / mmHG Vent. Rate : 080 BPM Atrial Rate : 080 BPM P-R Int : 140 ms QRS Dur : 096 ms QT Int : 418 ms P-R-T Axes : 040 050 059 degrees QTc Int : 482 ms Sinus rhythm with frequent Premature ventricular complexes Prolonged QT Abnormal ECG Confirmed by STACIA GARCIA, AME ([id number]), news editor TORRI SALAMANCA ([id number]) on 11/09/2017 1:07:36 PM Referred By: Sharmila Stanley Confirmed By:AME PALOMO MD
--- NOTE | 2017-11-05 18:15 | RAD_ITS ---
STUDY: X-RAY CHEST REASON FOR EXAM: Male, 72 years old. Weakness, shortness of breath, purple painful toes, history of recent PE TECHNIQUE: Single AP portable view of the chest. COMPARISON: Prior study of 09/12/2017 FINDINGS: monitoring manager leads are seen. There are patchy infiltrates of the left upper and lower lung beckett and right lung base. There is a 2.1 cm right basilar nodule similar to the previous study. A previously noted left upper lobe nodule may be obscured by the left upper lobe infiltrate. Normal size heart. Normal mediastinum and ann. Normal visualized pulmonary arteries. There are calcified plaques of the aortic arch. There are diffuse degenerative changes of the visualized thoracic spine. Normal visualized ribs, clavicles, and shoulders. There is no demonstrated abnormality of the visualized soft tissue structures of the upper abdomen. RAD/Chest 1 View (Portable) IMPRESSION: Bilateral infiltrates, new in the interval. 2.1 cm nodular density of the right lung base similar to the previous study. A previously noted left upper lobe nodule may be present but obscured by the left upper lobe infiltrate. Degenerative changes of the thoracic spine. Electronically Signed: Isael Turner MD at 18:41 EDT , Service support ,
--- NOTE | 2017-11-05 18:18 | CT_ITS ---
STUDY: CTA OF THE ABDOMINAL AORTA AND BILATERAL LOWER EXTREMITIES REASON FOR EXAM: Male, 72 years old. EMBOLI TO TOES, HX PE, LUNG MASS RADIATION DOSAGE (If Supplied By Facility): CTDIvol = ( 8.73 ) mGy, DLP = ( 2416.38 ) mGycm TECHNIQUE: Axial CT angiography multi-detector data acquisition was obtained following intravenous administration of 100 ml of Isovue 300 contrast. Axial images and MIP images were reconstructed from the axial data set. Post-processing of the angiographic images was performed, with multiplanar reformation and 3D reconstruction. Individualized dose optimization techniques were used for this CT. TECHNICAL QUALITY: Good COMPARISON: CT chest earlier today. CT October 26 2017 Descriptors of Narrowing: None (0%) Mild (< 50%) Moderate (50-70%) Severe (70-90%) Subtotal/Total Occlusion (90-100%) Non-Evaluable (technically non-diagnostic FINDINGS: Small left pleural effusion. Stable right pulmonary nodule. Right lower lobe pulmonary emboli. 18 x 20 mm enhancing nodule in the gallbladder fundus. This is unchanged since the prior CT scan. The appendix is visualized and is normal. Enlarged prostate gland. There is a left inguinal hernia containing fat. There is no bowel involvement. There is no incarceration. There is no findings suggesting that this is causing a bowel obstruction. There are multiple diverticuli of the colon. There is diverticulosis but no radiographic signs for diverticulitis. Atrophic left kidney. Soft tissue edema around the lower extremities. Abdominal aorta: There are calcifications of the abdominal aorta. This is consistent for atherosclerotic disease. There is 28 mm infrarenal abdominal aortic aneurysm. Celiac and superior mesenteric arteries: No demonstrated narrowing. Inferior mesenteric artery: No demonstrated narrowing. Right renal artery(arteries): No demonstrated narrowing. Left renal artery(arteries): No demonstrated narrowing. Right common iliac artery: No demonstrated narrowing. Right external iliac artery: No demonstrated narrowing. Right internal iliac artery: No demonstrated narrowing. Left common iliac artery: No demonstrated narrowing. Left external iliac artery: No demonstrated narrowing. Left internal iliac artery: No demonstrated narrowing. RIGHT LOWER EXTREMITY Right common femoral artery: No demonstrated narrowing. Right profundus femoris: No demonstrated narrowing. Right superficial femoral: No demonstrated narrowing. Right popliteal artery: No demonstrated narrowing. Right tibioperoneal trunk: No demonstrated narrowing. Right anterior tibial artery: There is severe diffuse narrowing, with visualization of the vessel to the proximal calf. Ureter is not visualized distally. This may suggest occlusion or severe stenosis. Right posterior tibial artery: There is severe diffuse narrowing, with visualization of the vessel to the distal calf. Artery is faintly visible near the ankle. Right peroneal artery: There is severe diffuse narrowing, with visualization of the vessel to the distal calf. Artery is faintly visible near the ankle. LEFT LOWER EXTREMITY Left common femoral artery: No demonstrated narrowing. Left profundus femoris: No demonstrated narrowing. Left superficial femoral: No demonstrated narrowing. Left popliteal artery: No demonstrated narrowing. Left tibioperoneal trunk: No demonstrated narrowing. Left anterior tibial artery: No demonstrated narrowing. Left posterior tibial artery: No demonstrated narrowing. Left peroneal artery: No demonstrated narrowing. CT/CTA Abd w/Runoff W/WO Contrast IMPRESSION: Small left pleural effusion. Stable right pulmonary nodule. Right lower lobe pulmonary emboli. 18 x 20 mm enhancing nodule in the gallbladder fundus. This is unchanged since the prior CT scan. 28 mm infrarenal abdominal aortic aneurysm. Right anterior tibial artery: There is severe diffuse narrowing, with visualization of the vessel to the proximal calf. Ureter is not visualized distally. This may suggest occlusion or severe stenosis. Right posterior tibial artery: There is severe diffuse narrowing, with visualization of the vessel to the distal calf. Artery is faintly visible near the ankle. Right peroneal artery: There is severe diffuse narrowing, with visualization of the vessel to the distal calf. Artery is faintly visible near the ankle. Soft tissue edema around the lower extremities. Electronically Signed: Alexey Natarjaan MD at 22:16 EDT , Service support ,
--- NOTE | 2017-11-05 18:18 | CT_ITS ---
STUDY: CTA CHEST REASON FOR EXAM: Male, 72 years old. Evaluate for PE RADIATION DOSAGE (If Supplied By Facility): CTDIvol = ( 29.01 ) mGy, DLP = ( 637.60 ) mGycm TECHNIQUE: The examination was performed with the intravenous administration of 100 ml of Isovue 300 contrast material. Post-processing of the angiographic images was performed, with multiplanar reformation and 3D reconstruction. Individualized dose optimization techniques were used for this CT. COMPARISON: Previous study October 26, 2017 FINDINGS: Normal enhancement of the main pulmonary artery and right and left pulmonary arteries. There is residual embolus in the distal left lower lobe pulmonary artery and possibly several distal branches of such. This appears similar to the previous study. There is a small embolus in a proximal right upper lobe pulmonary artery, stable in the interval. There are calcified plaques of the thoracic aorta. There is mild aneurysmal dilatation of the ascending thoracic aorta measuring up to 3.8 cm. There is no demonstrated aortic dissection. Normal heart and pericardium. There is extensive mediastinal and bilateral hilar adenopathy. Normal visualized trachea and bronchi. The lungs are well expanded. There is an extensive infiltrate of the left upper lobe slightly increased from the previous study. There is a pleural-based 2.2 cm right lower lobe mass, decreased in size in the interval. There is a left upper lobe mass with spiculated margins measuring 2.6 x 1.9 cm, similar to the previous study. There is a minimal left-sided effusion. Normal chest wall structures. There is an increased thoracic kyphosis. There are diffuse degenerative changes of the visualized thoracolumbar spine. There is no evidence of osseous metastatic disease. There are calcified splenic granulomas. CT/CTA Chest W/WO Contrast IMPRESSION: Residual emboli are seen in the distal left lower lobe pulmonary artery and possibly several peripheral branches thereof, as well as in a proximal right upper lobe pulmonary artery. These are stable in the interval. No new emboli are evident. Mild aneurysmal dilatation of the ascending thoracic aorta measuring up to 3.8 cm. Extensive left upper lobe infiltrate, appearing increased from the previous study. There is extensive hilar and mediastinal adenopathy, similar to the previous study. Pleural-based 2.2 cm right lower lobe mass, decreased in size in the interval. Stable left upper lobe mass measuring 2.6 x 1.9 cm. Minimal left-sided effusion. Electronically Signed: Isael Turner MD at 21:16 EDT , Service support ,
[2017-11-05] MEDS: Ondansetron 4 MG/2 ML Vial IV (18:24)
[2017-11-05] MEDS: Morphine 4 MG/ML Syringe IV ×2 (18:24→20:50)
[2017-11-05] MEDS: 0.9% Normal Saline 1,000 ML 1000 ML IV (18:25)
[2017-11-05 18:38] LABS: Absolute Lymphocyte Count 1.65 X10^3/ul (0.83-4.51); Absolute Neutrophil Count 9.4 X10^3/uL (2.0-7.7); Basophil# 0.04 X10^3/uL; Basophil% 0.3 % (0-1); Eosinophils% 2.4 % (0-5); Hematocrit 42.7 % (40-54); Hemoglobin 13.8 g/dl (13.0-16.5); Lymphocyte # 1.65 X10^3/ul (4.0); Lymphocyte % 12.9 % (19-41); Mean Corp Hgb Conc 32.3 g/gl (32-36); Mean Corpuscular Hgb 32.2 pg (27.0-32.0); Mean Corpuscular Volume 99.8 fL (80-94); Mean Platelet Vol. 11.5 fl (6.2-12.0); Monocyte% 10.2 % (0-10); Neutrophil % 73.7 % (47-70); Platelet Count 101 K/mm3 (150-450); RBC Distribution Width CV 16.8 % (11.6-14.6); RBC Distribution Width SD 59.6 fl (35.1-43.9); Red Blood Count 4.28 M/mm3 (4.6-6.2); White Blood Count 12.8 K/mm3 (4.4-11.0)
[2017-11-05 18:39] LABS: POSITIVE COUNT NO; POSITIVE DIFFERENTIAL NO; POSITIVE MORPHOLOGY NO
[2017-11-05 18:44] LABS: International Normalized Ratio 2.2; Prothrombin Time (Protime)PT. 24.1 SECONDS (11.7-14.9)
[2017-11-05 18:45] LABS: Partial Thromboplast Time 35.8 Seconds (24.1-36.2)
[2017-11-05 18:55] LABS: Anion Gap 7 (5-15); BUN 30 mg/dL (7-18); BUN/Creat Ratio 16.9 RATIO (10-20); Calcium,Total 9.2 mg/dL (8.5-10.1); Chloride 101 mmol/L (98-107); Creatinine, Serum 1.78 mg/dL (0.70-1.30); EST Glomerular Filtration Rate 40 mL/min (>60); Est Glom Filt Rate - Afr Amer 48 mL/min (>60); Estimated Creatinine Clearance 35.04 ml/min; Glucose 85 mg/dL (74-106); Potassium 3.6 mmol/L (3.5-5.1); Sodium Level 140 mmol/L (136-145)
[2017-11-05 19:01] LABS: Lactic Acid 1.4 mmol/L (0.4-2.0)
[2017-11-05] MEDS: Heparin Injection (Vial) 5,000 UNIT/ML VIAL 4500 UNIT IV (20:34)
[2017-11-05] MEDS: HEPARIN/D5w 25,000 UNITS 25,000 UNITS/250 ML IV.SOLN. 10 UNITS IV (20:34)
[2017-11-05] MEDS: Ipratropium/Albuterol Sulfate 3 ML AMPUL.NEB INHALATION (22:35)
--- NOTE | 2017-11-05 22:40 | NURSING ---
CALLED [facility] AT [phone] AND WAS INFORMED BY NOHEMY THERE WHERE NO BEDS AVAILABLE.
--- NOTE | 2017-11-05 23:26 | NURSING ---
ACCPETED TO [facility] BY DR. CHRISSY SALAMACNA GOING TO [phone] FOR REPORT
[2017-11-06] MEDS: levoFLOXacin 750 MG Tablet PO (00:06)
[2017-11-06 00:09] VITALS: BP 120/58; PULSE 72; RESP 16; O2SAT 91
[2017-11-06 00:17] VITALS: BP 122/60; PULSE 68; RESP 19; O2SAT 92
--- NOTE | 2017-11-06 02:09 | ED.VISSUMM ---
- ER Visit Summary Date of Service: 11/06/17 Chief Complaint: Fatigue History of Present Illness: The patient is a 72 M who goes to the [facility]. He does not have a public service officer. Patient has a complicated recent medical history. He was diagnosed with a PE September 14. He was placed on Xarelto. Reports that he has not felt well since he got a refill on this and it was generic. Patient reports that he has shortness of breath that began approximately 2 weeks ago. States he has had subjective fever and chills. He has a cough that is productive of blood and blood-tinged sputum. He reports that he has occasional chest pain on the left. Reports that he is severely short of breath. This is much worse with walking. When he lays flat his cough worsens. Family reports that he had a pulse ox of 82% at home. He is not on home O2. Patient also complains of generalized weakness. He reports that he is lightheaded and gets much worse when he stands. He has not passed out. Finally patient reports that over the past 2 days his toes have began to turn blue. Physical Examination: Vitals: 97.8, 124/66, 80, 16, 90% on room air which is hypoxic. General: Well-nourished and well-developed. Head: Normocephalic atraumatic. Neck: Supple, no lymphadenopathy. No JVD. Nontender. Cardiovascular: Regular rate and rhythm. 2 out of 6 systolic murmur. Respiratory: No respiratory distress. Mild wheezing bilaterally with rhonchi on the left. Abdominal: Soft, nontender, nondistended, normal bowel sounds. No guarding, rebound, or peritoneal signs. Back: Nontender. Extremities: 1+ pitting edema of his lower extremities bilaterally. I am unable to palpate a dorsalis pedis or a posterior tibial pulse bilaterally. Skin: His left second and fourth toe are blue. His right third to fifth toes are blue. His feet are not pale. He does have 4-5 second capillary refill bilaterally. Neurologic: Alert and oriented ?3. Cranial nerves II through XII are intact. Normal strength and sensation. Psych: Normal affect. Test Results: EKG is sinus at 80 with PVCs and a QTC of 482. CBC is marked for a white count of 12.8, platelets 104, segmented neutrophils 74, leukocytes of 13. Chem-7 is remarkable for a BUN of 30 and creatinine 1.78. INR is 2.2 (despite the fact that he is not on Coumadin). PTT is 35.8. Initial troponin 0 0.056. Chest x-ray shows Clinical Impression(s) from Imaging Studies Chest X-Ray 11/05/17 18:15 IMPRESSION: Bilateral infiltrates, new in the interval. 2.1 cm nodular density of the right lung base similar to the previous study. A previously noted left upper lobe nodule may be present but obscured by the left upper lobe infiltrate. Degenerative changes of the thoracic spine. Electronically Signed: Isael Turner MD at 18:41 EDT , Service support , Abdomen/Pelvis CTA 11/05/17 18:18 IMPRESSION: Small left pleural effusion. Stable right pulmonary nodule. Right lower lobe pulmonary emboli. 18 x 20 mm enhancing nodule in the gallbladder fundus. This is unchanged since the prior CT scan. 28 mm infrarenal abdominal aortic aneurysm. Right anterior tibial artery: There is severe diffuse narrowing, with visualization of the vessel to the proximal calf. Ureter is not visualized distally. This may suggest occlusion or severe stenosis. Right posterior tibial artery: There is severe diffuse narrowing, with visualization of the vessel to the distal calf. Artery is faintly visible near the ankle. Right peroneal artery: There is severe diffuse narrowing, with visualization of the vessel to the distal calf. Artery is faintly visible near the ankle. Soft tissue edema around the lower extremities. Electronically Signed: Alexey Natarajan MD at 22:16 EDT , Service support , Chest CTA 11/05/17 18:18 IMPRESSION: Residual emboli are seen in the distal left lower lobe pulmonary artery and possibly several peripheral branches thereof, as well as in a proximal right upper lobe pulmonary artery. These are stable in the interval. No new emboli are evident. Mild aneurysmal dilatation of the ascending thoracic aorta measuring up to 3.8 cm. Extensive left upper lobe infiltrate, appearing increased from the previous study. There is extensive hilar and mediastinal adenopathy, similar to the previous study. Pleural-based 2.2 cm right lower lobe mass, decreased in size in the interval. Stable left upper lobe mass measuring 2.6 x 1.9 cm. Minimal left-sided effusion. Electronically Signed: Isael Turner MD at 21:16 EDT , Service support , Emergency Department Course and Treatment: Patient's last dose of Xarelto was approximately 24 hours ago. He was started on a heparin drip upon arrival to the emergency department. He was given morphine and Zofran IV. He was also given Levaquin and aztreonam IV. Treatment Plan: I suspect the patient is having emboli to his toes. I do not have an obvious source for this. I feel the patient warrants transfer to a tertiary care center for further evaluation. The [facility] does not have beds available. He was discussed with a vascular surgeon at [facility] and was ultimately admitted to the medicine service. Disposition: Transferred in serious condition. Impression: 1. Pneumonia, healthcare acquired. 2. Pulmonary masses, left upper lobe and right lower lobe. 3. Emboli to toes bilaterally. 4. Chronic renal insufficiency. 5. Critical care time 30 minutes. This note was generated with [employer] dictation software. It may contain incorrect words, spelling, and punctuation that were not noted in review of the chart prior to signing ED Disposition - Plan for ED Patient: Disposition: [facility] Chief Complaint: Shortness of Breath Referrals: Sharmila Stanley MD [Primary Care Provider] -
--- NOTE | 2017-11-06 02:17 | ED.DCSUM_ITS ---
- ER Visit Summary Date of Service: 11/06/17 Chief Complaint: Fatigue History of Present Illness: The patient is a 72 M who goes to the [facility]. 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 Patient has a complicated recent medical history. He was diagnosed with a PE September 14. He was placed on Xarelto. Reports that he has not felt well since he got a refill on this and it was generic. Patient reports that he has shortness of breath that began approximately 2 weeks ago. States he has had subjective fever and chills. He has a cough that is productive of blood and blood-tinged sputum. He reports that he has occasional chest pain on the left. Reports that he is severely short of breath. This is much worse with walking. When he lays flat his cough worsens. Family reports that he had a pulse ox of 82% at home. He is not on home O2. Patient also complains of generalized weakness. He reports that he is lightheaded and gets much worse when he stands. He has not passed out. Finally patient reports that over the past 2 days his toes have began to turn blue. Physical Examination: Vitals: 97.8, 124/66, 80, 16, 90% on room air which is hypoxic. General: Well-nourished and well-developed. Head: Normocephalic atraumatic. Neck: Supple, no lymphadenopathy. No JVD. Nontender. Cardiovascular: Regular rate and rhythm. 2 out of 6 systolic murmur. Respiratory: No respiratory distress. Mild wheezing bilaterally with rhonchi on the left. Abdominal: Soft, nontender, nondistended, normal bowel sounds. No guarding, rebound, or peritoneal signs. Back: Nontender. Extremities: 1+ pitting edema of his lower extremities bilaterally. I am unable to palpate a dorsalis pedis or a posterior tibial pulse bilaterally. Skin: His left second and fourth toe are blue. His right third to fifth toes are blue. His feet are not pale. He does have 4-5 second capillary refill bilaterally. Neurologic: Alert and oriented ?3. Cranial nerves II through XII are intact. Normal strength and sensation. Psych: Normal affect. Test Results: EKG is sinus at 80 with PVCs and a QTC of 482. CBC is marked for a white count of 12.8, platelets 104, segmented neutrophils 74, leukocytes of 13. Chem-7 is remarkable for a BUN of 30 and creatinine 1.78. INR is 2.2 ( despite the fact that he is not on Coumadin). PTT is 35.8. Initial troponin 0 0.056. Chest x-ray shows Clinical Impression(s) from Imaging Studies Chest X-Ray 11/05/17 18:15 IMPRESSION: Bilateral infiltrates, new in the interval. 2.1 cm nodular density of the right lung base similar to the previous study. A previously noted left upper lobe nodule may be present but obscured by the left upper lobe infiltrate. Degenerative changes of the thoracic spine. Electronically Signed: Isael Turner MD at 18:41 EDT , Service support , Abdomen/Pelvis CTA 11/05/17 18:18 IMPRESSION: Small left pleural effusion. Stable right pulmonary nodule. Right lower lobe pulmonary emboli. 18 x 20 mm enhancing nodule in the gallbladder fundus. This is unchanged since the prior CT scan. 28 mm infrarenal abdominal aortic aneurysm. Right anterior tibial artery: There is severe diffuse narrowing, with visualization of the vessel to the proximal calf. Ureter is not visualized distally. This may suggest occlusion or severe stenosis. Right posterior tibial artery: There is severe diffuse narrowing, with visualization of the vessel to the distal calf. Artery is faintly visible near the ankle. Right peroneal artery: There is severe diffuse narrowing, with visualization of the vessel to the distal calf. Artery is faintly visible near the ankle. Soft tissue edema around the lower extremities. Electronically Signed: Alexey Natarajan MD at 22:16 EDT , Service support , Chest CTA 11/05/17 18:18 IMPRESSION: Residual emboli are seen in the distal left lower lobe pulmonary artery and possibly several peripheral branches thereof, as well as in a proximal right upper lobe pulmonary artery. These are stable in the interval. No new emboli are evident. Mild aneurysmal dilatation of the ascending thoracic aorta measuring up to 3.8 cm. Extensive left upper lobe infiltrate, appearing increased from the previous study. There is extensive hilar and mediastinal adenopathy, similar to the previous study. Pleural-based 2.2 cm right lower lobe mass, decreased in size in the interval. Stable left upper lobe mass measuring 2.6 x 1.9 cm. Minimal left-sided effusion. Electronically Signed: Isael Turner MD at 21:16 EDT , Service support , Emergency Department Course and Treatment: Patient's last dose of Xarelto was approximately 24 hours ago. He was started on a heparin drip upon arrival to the emergency department. He was given morphine and Zofran IV. He was also given Levaquin and aztreonam IV. Treatment Plan: I suspect the patient is having emboli to his toes. I do not have an obvious source for this. I feel the patient warrants transfer to a tertiary care center for further evaluation. The [facility] does not have beds available. He was discussed with a vascular surgeon at [facility] and was ultimately admitted to the medicine service. Disposition: Transferred in serious condition. Impression: 1. Pneumonia, healthcare acquired. 2. Pulmonary masses, left upper lobe and right lower lobe. 3. Emboli to toes bilaterally. 4. Chronic renal insufficiency. 5. Critical care time 30 minutes. This note was generated with [employer] dictation software. It may contain incorrect words, spelling, and punctuation that were not noted in review of the chart prior to signing ED Disposition - Plan for ED Patient: Disposition: [facility] Chief Complaint: Shortness of Breath Referrals: Sharmila Stanley MD [Primary Care Provider] -
== END 2017-11-06 00:33 | disposition short-term general hospital (02) ==
PROVIDERS: Emergency Provider Emergency Medicine; Family Provider Family Medicine; PCP Family Medicine
DX: J18.9 Pneumonia, unspecified organism (principal); Y95 Nosocomial condition; R91.8 Other nonspecific abnormal finding of lung field; I74.3 Embolism and thrombosis of arteries of the lower extremities; Z86.711 Personal history of pulmonary embolism; Z79.01 Long term (current) use of anticoagulants; I25.10 Atherosclerotic heart disease of native coronary artery without angina pectoris; I12.9 Hypertensive chronic kidney disease with stage 1 through stage 4 chronic kidney disease, or unspecified chronic kidney disease; N18.9 Chronic kidney disease, unspecified; E78.00 Pure hypercholesterolemia, unspecified; M10.9 Gout, unspecified; Z79.82 Long term (current) use of aspirin; Z79.899 Other long term (current) drug therapy; Z72.0 Tobacco use
CPT/HCPCS: 71045; 71275; 75635; 80048; 83605; 84484; 85025; 85610; 85730; 93005; 94640; 96361; 96365; 96366; 96368; 96375; 96376; 99285; J7050; Q9967; A4216; J2405